=== PATIENT | male | born 1950 | race Caucasian/White ===

== ENCOUNTER 2018-12-10 09:58 | Emergency (ER) | payer MEDICARE, OTHER ==
[2018-12-10] MEDS ORDERED: RINGERS SOLUTION,LACTATED 1,000 ML IV ONE (10:47)
[2018-12-10] MEDS ORDERED: ONDANSETRON HCL INJ/PF 4 MG/2 ML SDV IV ONE (11:21)
[2018-12-10] MEDS ORDERED: MORPHINE SULFATE 10 MG/ML INJ IV ONE ×2 (11:21→23:22)
[2018-12-10 11:55] LABS: ABSOLUTE LYMPHOCYTES (AUTO) 0.4 10^3/uL (0.5-4.7); ABSOLUTE MONOCYTES (AUTO) 0.1 10^3/uL (0.1-1.4); ABSOLUTE NEUT (AUTO) 5.6 10^3/uL (1.7-8.2); BASOPHILS % (AUTO) 0.2 % (0-2); EOSINOPHILS % (AUTO) 0.3 % (0-6); HEMATOCRIT 47.5 % (37.9-51.0); HEMOGLOBIN 16.7 g/dL (13.5-17.0); LYMPHOCYTES % (AUTO) 5.9 % (13-45); MEAN CORPUSCULAR HEMOGLOBIN 32.8 pg (27.0-33.4); MEAN CORPUSCULAR HGB CONC 35.2 g/dL (32.0-36.0); MEAN CORPUSCULAR VOLUME 93 fl (80-97); MONOCYTES % (AUTO) 1.5 % (3-13); PLATELET COUNT 145 10^3/uL (150-450); SEGMENTED NEUTROPHILS % (AUTO) 92.1 % (42-78); TOTAL CELLS COUNTED % (AUTO) 100 %; WHITE BLOOD COUNT 6.1 10^3/uL (4.0-10.5)
[2018-12-10 11:56] LABS: INTERNATIONAL RATION (INR) 0.87; PROTHROMBIN TIME 12.3 SEC (11.4-15.4)
[2018-12-10 12:10] LABS: ALBUMIN 4.9 g/dL (3.5-5.0); ANION GAP 15 (5-19); BLOOD UREA NITROGEN 21 mg/dL (7-20); CALCIUM 10.6 mg/dL (8.4-10.2); CARBON DIOXIDE 27 mmol/L (22-30); CHLORIDE 101 mmol/L (98-107); GLUCOSE 101 mg/dL (75-110); POTASSIUM 4.7 mmol/L (3.6-5.0); SODIUM 142.5 mmol/L (137-145)
[2018-12-10 12:12] LABS: ALANINE AMINOTRANSFERASE 966 U/L (21-72); ALKALINE PHOSPHATASE 219 U/L (38-126); ASPARTATE AMINO TRANSFERASE 670 U/L (17-59); BILIRUBIN,DIRECT 6.1 mg/dL (0.0-0.4); BILIRUBIN,TOTAL 8.1 mg/dL (0.2-1.3); LIPASE 19.2 U/L (23-300)
--- NOTE | 2018-12-10 12:39 | EKG REPORT ---
SEVERITY:- NORMAL ECG - SINUS RHYTHM : Confirmed by: Viri Maguire MD 10-Dec-2018 12:38:26
[2018-12-10] MEDS ORDERED: NORMAL SALINE 1000 ML 1,000 ML IV PRN ×2 (13:26→17:06)
--- NOTE | 2018-12-10 13:47 | ER Document Report ---
ED General - General Chief Complaint: Abdominal Pain Stated Complaint: BLOOD SUGAR ISSUES Time Seen by Provider: 12/10/18 10:43 Primary Care Provider: BETH BOLIVAR DO [Primary Care Provider] - Follow up as needed Mode of Arrival: Ambulatory Information source: Patient TRAVEL OUTSIDE OF THE [place] IN LAST 30 DAYS: No - HPI Notes: Epigastric, right upper quadrant left upper quadrant abdominal pain started approximately 4 days ago. Patient does have a history of alcoholic pancreatitis, reports he does feel nauseated, no vomiting or diarrhea she was treated for pancreatitis in 2015 and later , patient was seen in [place] and his meld is low. at bedside he states she noticed the "beginnings of pancreatitis. Patient recently had blood work done back in September in which his LFTs were normal. Patient is an insulin-dependent diabetic. No chest pain or shortness of breath, no weakness down bilateral extremities, weakness, lightheadedness, dizziness, changes in vision, neck pain, cough, wheezing, lower back pain. States that the symptoms are very similar to his previous episode of pancreatitis. Patient does not have a GI doctor in this area. - Related Data Allergies/Adverse Reactions: lisinopril Allergy (Verified 12/10/18 10:01) olmesartan [From Benicar] Allergy (Verified 12/10/18 10:01) Home Medications: farxiga. HCTZ. zoloftsynthroid. levemir. omeprazole. amlodipine. carvedilol. metformin. limiperide Past Medical History - General Information source: Patient, Relative - Social History Smoking Status: Never Smoker Chew tobacco use (# tins/day): No Frequency of alcohol use: None Drug Abuse: None Family History: Reviewed & Not Pertinent Patient has suicidal ideation: No Patient has homicidal ideation: No - Past Medical History Cardiac Medical History: Reports: Hx Hypertension Endocrine Medical History: Reports: Hx Diabetes Mellitus Type 2 Renal/ Medical History: Denies: Hx Peritoneal Dialysis Past Surgical History: Reports: Hx Orthopedic Surgery Review of Systems - Review of Systems Constitutional: No symptoms reported EENT: No symptoms reported Cardiovascular: No symptoms reported Respiratory: No symptoms reported Gastrointestinal: See HPI Genitourinary: No symptoms reported Male Genitourinary: No symptoms reported Musculoskeletal: No symptoms reported Skin: No symptoms reported Hematologic/Lymphatic: No symptoms reported Neurological/Psychological: No symptoms reported Physical Exam - Vital signs Vitals: Temp Pulse Resp BP Pulse Ox 97.7 F 76 20 135/84 H 97 12/10/18 10:07 12/10/18 10:07 12/10/18 10:12/10/18 10:12/10/18 10:07 - Notes Notes: PHYSICAL EXAMINATION: GENERAL: Well-appearing, well-nourished and in no acute distress. HEAD: Atraumatic, normocephalic. EYES: Pupils equal round and reactive to light, extraocular movements intact, sclera anicteric, conjunctiva are normal. ENT: Nares patent, oropharynx clear without exudates. Moist mucous membranes. NECK: Normal range of motion, supple without lymphadenopathy LUNGS: Breath sounds clear to auscultation bilaterally and equal. No wheezes rales or rhonchi. HEART: Regular rate and rhythm without murmurs ABDOMEN: Right upper quadrant, left upper quadrant and epigastric tenderness on palpation. soft, nondistended abdomen. No guarding, no rebound. No masses appreciated. No CVA tenderness bilaterally Musculoskeletal: Normal range of motion, no pitting or edema. No cyanosis. NEUROLOGICAL: Cranial nerves grossly intact. Normal speech, normal gait. Normal sensory, motor exams PSYCH: Normal mood, normal affect. SKIN: Warm, Dry, normal turgor, no rashes or lesions noted. Course - Re-evaluation Re-evalutation: 12/10/18 14:42 68-year-old male afebrile vitals stable no mild distress due to pain presented to the ED for evaluation, AST 670, ALT 966, alk phos is 219, direct bili is 6.1.1, indirect bili is 8.2, CT negative for leukocytosis or anemia, renal function unremarkable, electrolytes without disturbances. Ultrasound of limited abdomen does show a fatty liver, CT abdomen pelvis with IV contrast shows chron ic pancreatitis. Patient's blood sugar in the 80s, although this is considered normal, patient is insulin-dependent diabetic with a reported A1c of 6.7, will be Glucogon since patient is likely tolerant to a glucose in the 130s on reevaluation, patient remains afebrile vitals. On reevaluation patient remains without any complaints, vitals stable. This is a latest lab gastroenterology alcohol patient with ERCP due to likely obstruction of pancreatic duct no masses seen on CT of abdomen pelvis with IV contrast. Discussed with patient likely need to be transferred. You have over, [facility], Dr. Simona Novak, hospitalist accepted patient to GI floor for further evaluation. Verbalized transfer to patient who stated he is agreeable to this plan of care. Patient will receive pain control as well as IV hydration will remain n.p.o. with monitoring his blood sugar due to being diabetic. Disposition given to mo BURDICK at 0715 at bedside - Vital Signs Vital signs: Temp Pulse Resp BP Pulse Ox 98.6 F 76 17 99/70 L 95 12/10/18 13:02 12/10/18 10:07 12/10/18 17:00 12/10/18 15:11 12/10/18 17:00 - Laboratory Result Diagrams: 12/10/18 11:18 12/10/18 11:18 Laboratory results interpreted by me: 12/10/18 12/10/18 12/10/18 11:18 11:18 11:18 Plt Count 145 L Seg Neutrophils % 92.1 H Lymphocytes % 5.9 L Monocytes % 1.5 L Absolute Lymphocytes 0.4 L BUN 21 H POC Glucose Calcium 10.6 H Total Bilirubin 8.1 H Direct Bilirubin 6.1 H AST 670 H ALT 966 H Alkaline Phosphatase 219 H Ammonia Creatine Kinase 43 L Lipase 19.2 L Urine Glucose (UA) Urine Ketones Urine Urobilinogen 12/10/18 12/10/18 12/10/18 14:28 15:14 15:36 Plt Count Seg Neutrophils % Lymphocytes % Monocytes % Absolute Lymphocytes BUN POC Glucose 130 H Calcium Total Bilirubin Direct Bilirubin AST ALT Alkaline Phosphatase Ammonia < 8.7 L Creatine Kinase Lipase Urine Glucose (UA) >=500 H Urine Ketones 20 H Urine Urobilinogen 4.0 H Discharge - Discharge Clinical Impression: suspected pancreatic obstruction, Elevated LFTs Disposition: [facility] Referrals: BETH BOLIVAR, [Primary Care Provider] - Follow up as needed
[2018-12-10] MEDS ORDERED: GLUCAGON,HUMAN RECOMB 1 MG INJ SUBCUT ONE (14:19)
--- NOTE | 2018-12-10 14:25 | RADIOLOGY REPORT (SQ) ---
EXAM DESCRIPTION: CHEST SINGLE VIEW COMPLETED DATE/TIME: 12/10/2018 2:16 pm REASON FOR STUDY: epigastric pain COMPARISON: None. EXAM PARAMETERS: NUMBER OF VIEWS: One view. TECHNIQUE: Single frontal radiographic view of the chest acquired. RADIATION DOSE: NA LIMITATIONS: None. FINDINGS: LUNGS AND PLEURA: No acute infiltrates or effusions. MEDIASTINUM AND HILAR STRUCTURES: No masses. Contour normal. HEART AND VASCULAR STRUCTURES: Normal heart size and uncoiling thoracic aorta. . BONES: No acute findings. HARDWARE: Status post cervical fusion. OTHER: Chest leads in place. IMPRESSION: NO ACUTE DISEASE. TECHNICAL DOCUMENTATION: JOB ID: [id number] SC-69 2010 [employer]- All Rights Reserved Reading location - IP/workstation name: [email or web address]
[2018-12-10] MEDS ORDERED: GLUCAGON,HUMAN RECOMB 1 MG INJ IV ONE (14:58)
--- NOTE | 2018-12-10 14:59 | RADIOLOGY REPORT (SQ) ---
EXAM DESCRIPTION: CT ABD/PELVIS WITH IV ONLY COMPLETED DATE/TIME: 12/10/2018 2:32 pm REASON FOR STUDY: RUQ, LUQ, epigastric pain w/ elevated LFTs COMPARISON: None. TECHNIQUE: CT scan of the abdomen and pelvis performed using helical scanning technique with dynamic intravenous contrast injection. No oral contrast. Images reviewed with lung, soft tissue, and bone windows. Reconstructed coronal and sagittal MPR images reviewed. Delayed images for evaluation of the urinary system also acquired. All images stored on PACS. All CT scanners at this facility use dose modulation, iterative reconstruction, and/or weight based d osing when appropriate to reduce radiation dose to as low as reasonably achievable (ALARA). [facility]: Dose Right [facility]: CareDose [facility]: Dose Right [facility]: Teradose 4D [facility]: [employer] CONTRAST TYPE AND DOSE: contrast/concentration: Isovue 350.00 mg/ml; Total Contrast Delivered: 100.0 ml; Total Saline Delivered: 70.0 ml RENAL FUNCTION: GFR > 60. RADIATION DOSE: CT Rad equipment meets quality standard of care and radiation dose reduction techniq ues were employed. CTDIvol: 20.2 - 29.2 mGy. DLP: 2787 mGy-cm.. LIMITATIONS: Artifact from bilateral hip arthroplasty. FINDINGS: LOWER CHEST: 3 mm pleural-based nodule right lower lobe image 8. LIVER: 4 cm cyst. No solid mass or biliary dilatation. SPLEEN: Normal size. No focal lesions. PANCREAS: Atrophy. Calcifications consistent with chronic pancreatitis. GALLBLADDER: Surgically absent. ADRENAL GLANDS: No significant masses or asymmetry. RIGHT KIDNEY AND URETER: No solid masses. No significant calcifications. No hydronephrosis or hyd roureter. LEFT KIDNEY AND URETER: No solid masses. No significant calcifications. No hydronephrosis or hydr oureter. AORTA AND VESSELS: No aneurysm. No dissection. Renal arteries, SMA, celiac without stenosis. RETROPERITONEUM: No retroperitoneal adenopathy, hemorrhage or masses. BOWEL AND PERITONEAL CAVITY: Incidental duodenum diverticulum. Right hemicolectomy. No bowel obstru ction. No ascites or free air. APPENDIX: Surgically absent. PELVIS: No mass. No free fluid. Normal bladder. ABDOMINAL WALL: Small fat containing umbilical hernia. BONES: Nothing acute. OTHER: No other significant finding. IMPRESSION: Chronic pancreatitis. Right hemicolectomy. No acute findings. TECHNICAL DOCUMENTATION: JOB ID: [id number] Quality ID # [id number]: Final reports with documentation of one or more dose reduction techniques (e.g., Au tomated exposure control, adjustment of the mA and/or kV according to patient size, use of iterative reconstruction technique) 2010 [employer]- All Rights Reserved Reading location - IP/workstation name: [email or web address]
[2018-12-10 15:31] LABS: APPEARANCE,URINE CLEAR; BILIRUBIN,URINE NEGATIVE (NEGATIVE); COLOR,URINE AMBER; GLUCOSE, URINE >=500 mg/dL (NEGATIVE); KETONES,URINE 20 mg/dL (NEGATIVE); LEUKOCYTE ESTERASE,URINE NEGATIVE (NEGATIVE); NITRITE,URINE NEGATIVE (NEGATIVE); PROTEIN,URINE NEGATIVE (NEGATIVE); URINE SPECIFIC GRAVITY 1.048
--- NOTE | 2018-12-10 16:38 | RADIOLOGY REPORT (SQ) ---
EXAM DESCRIPTION: U/S ABDOMEN LTD W/DOPPLER COMPLETED DATE/TIME: 12/10/2018 4:27 pm REASON FOR STUDY: LFT's 900, epigastric pain with swelling COMPARISON: None. TECHNIQUE: Dynamic and static grayscale images acquired of the abdomen and recorded on PACS. Additio nal selected color Doppler and spectral images recorded. LIMITATIONS: Limited visualization. Poor acoustical window FINDINGS: PANCREAS: Not visualized. LIVER: Normal size Mild fatty infiltration. No focal masses. LIVER VASCULATURE: Normal directional flow of the main portal vein and hepatic veins. GALLBLADDER: Surgically absent. ULTRASOUND-DETECTED MCINTOSH'S SIGN: Not applicable. INTRAHEPATIC DUCTS AND COMMON DUCT: CBD and intrahepatic ducts normal caliber. No filling defects. INFERIOR VENA CAVA: Normal flow. AORTA: No aneurysm. RIGHT KIDNEY: Normal size. Normal echogenicity. No solid or suspicious masses. No hydronephros is. No calcifications. PERITONEAL AND RIGHT PLEURAL SPACE: No ascites or effusions. OTHER: No other significant findings. IMPRESSION: Fatty liver. No acute findings. TECHNICAL DOCUMENTATION: JOB ID: [id number] [employer]- All Rights Reserved Reading location - IP/workstation name: [email or web address]
[2018-12-10] MEDS ORDERED: DEXTROSE 40% GEL 15 GM TUBE PO PRN ×2 (17:10)
[2018-12-10] MEDS ORDERED: GLUCAGON,HUMAN RECOMB 1 MG INJ IM PRN (17:10)
[2018-12-10] MEDS ORDERED: DEXTROSE 50%-WATER 25 GM/50 ML DISP.SYRIN IV PRN ×2 (17:10)
--- NOTE | 2018-12-10 17:18 | PDOC H&P ---
History of Present Illness Admission Date/PCP: BETH BOLIVAR DO Patient complains of: abdominal pain History of Present Illness: DANIEL ROBERTS is a 68 year old male who presents to the ER with a complaint of abdominal pain. Pain started 4 days ago. He felt it was his pancreatitis he had that several times in the past. Been eating and drinking very little. Been having some nausea and abdominal pain pain is worse in the right upper quadrant. Nothing makes pain better or worse. Pain is more of a sharp sensation. He has a history of a cholecystectomy. He denies any fevers chills any shortness of breath any vomiting any constipation or diarrhea. Denies any foreign travel. Did eat some shrimp a few days ago. And had oysters a couple of weeks ago. Past Medical History Cardiac Medical History: Reports: Hypertension Pulmonary Medical History: Reports: None Neurological Medical History: Reports: None Endocrine Medical History: Reports: Diabetes Mellitus Type 2 Past Surgical History Past Surgical History: Reports: Orthopedic Surgery Social History Smoking Status: Never Smoker Family History Family History: CAD, DM, Hypertension Parental Family History Reviewed: Yes Children Family History Reviewed: Yes Sibling(s) Family History Reviewed.: Yes Medication/Allergy Allergies/Adverse Reactions: lisinopril Allergy (Verified 12/10/18 10:01) olmesartan [From Benicar] Allergy (Verified 12/10/18 10:01) Review of Systems Constitutional: PRESENT: anorexia. ABSENT: chills, fatigue, fever(s), headache(s), night sweats, weakness Nose, Mouth, and Throat: ABSENT: sore throat Cardiovascular: ABSENT: edema, orthropnea, palpitations Gastrointestinal: PRESENT: abdominal pain, nausea. ABSENT: constipation, diarrhea, vomiting Integumentary: ABSENT: pruritus, rash Neurological: ABSENT: dizziness, lack of coordination Endocrine: ABSENT: polydipsia, polyuria Hematologic/Lymphatic: ABSENT: easy bruising Physical Exam Vital Signs: Temp Pulse Resp BP Pulse Ox 98.6 F 76 17 99/70 L 95 12/10/18 13:02 12/10/18 10:07 12/10/18 17:00 12/10/18 15:11 12/10/18 17:00 Intake & Output 12/09/18 12/10/18 12/11/18 06:59 06:59 06:59 Intake Total 1000 Balance 1000 Weight 141.1 kg General appearance: PRESENT: no acute distress, cooperative, obese, well- developed Head exam: PRESENT: atraumatic Eye exam: PRESENT: EOMI, PERRLA. ABSENT: scleral icterus Ear exam: ABSENT: bleeding Throat exam: ABSENT: tonsillogmegaly Neck exam: ABSENT: full ROM, JVD, lymphadenopathy, tenderness, thyromegaly, tracheal deviation Respiratory exam: PRESENT: clear to auscultation [place], unlabored. ABSENT: accessory muscle use Cardiovascular exam: PRESENT: RRR. ABSENT: gallop, rubs GI/Abdominal exam: PRESENT: normal bowel sounds, soft, tenderness. ABSENT: distended, guarding Musculoskeletal exam: ABSENT: tenderness Neurological exam: PRESENT: alert, oriented to person, oriented to place, oriented to time, oriented to situation Skin exam: PRESENT: dry, normal color, warm Results Laboratory Results: 12/10/18 11:18 12/10/18 11:18 12/10/18 12/10/18 12/10/18 11:18 11:18 14:28 WBC 6.1 RBC 5.10 Hgb 16.7 Hct 47.5 MCV 93 MCH 32.8 MCHC 35.2 RDW 14.0 Plt Count 145 L Seg Neutrophils % 92.1 H Lymphocytes % 5.9 L Monocytes % 1.5 L Eosinophils % 0.3 Basophils % 0.2 Absolute Neutrophils 5.6 Absolute Lymphocytes 0.4 L Absolute Monocytes 0.1 Absolute Eosinophils 0.0 Absolute Basophils 0.0 Sodium 142.5 Potassium 4.7 Chloride 101 Carbon Dioxide 27 Anion Gap 15 BUN 21 H Creatinine 1.01 Est GFR ( Amer) > 60 Est GFR (Non-Af Amer) > 60 Glucose 101 Calcium 10.6 H Total Bilirubin 8.1 H AST 670 H ALT 966 H Alkaline Phosphatase 219 H Ammonia < 8.7 L Total Protein 8.0 Albumin 4.9 Lipase 19.2 L Urine Color Urine Appearance Urine pH Ur Specific [place] Urine Protein Urine Glucose (UA) Urine Ketones Urine Blood Urine Nitrite Ur Leukocyte Esterase Urine WBC (Auto) Urine RBC (Auto) 12/10/18 15:14 WBC RBC Hgb Hct MCV MCH MCHC RDW Plt Count Seg Neutrophils % Lymphocytes % Monocytes % Eosinophils % Basophils % Absolute Neutrophils Absolute Lymphocytes Absolute Monocytes Absolute Eosinophils Absolute Basophils Sodium Potassium Chloride Carbon Dioxide Anion Gap BUN Creatinine Est GFR ( Amer) Est GFR (Non-Af Amer) Glucose Calcium Total Bilirubin AST ALT Alkaline Phosphatase Ammonia Total Protein Albumin Lipase Urine Color MIN[place] Urine Appearance CLEAR Urine pH 5.0 Ur Specific [place] 1.048 Urine Protein NEGATIVE Urine Glucose (UA) >=500 H Urine Ketones 20 H Urine Blood NEGATIVE Urine Nitrite NEGATIVE Ur Leukocyte Esterase NEGATIVE Urine WBC (Auto) 1 Urine RBC (Auto) 1 12/10/18 12/10/18 11:18 11:18 CK-MB (CK-2) 0.76 Troponin I < 0.012 Cancelled Impressions: Abdomen Ultrasound 12/10/18 13:28 IMPRESSION: Fatty liver. No acute findings. Chest X-Ray 12/10/18 13:33 IMPRESSION: NO ACUTE DISEASE. Abdomen/Pelvis CT 12/10/18 13:45 IMPRESSION: Chronic pancreatitis. Right hemicolectomy. No acute findings. Assessment & Plan - Diagnosis (1) Acute hepatitis Is this a current diagnosis for this admission?: Yes Plan: We will admit to medical services. Hepatitis panel has been sent to the lab. Will hydrate with normal saline. Continue to hold home diabetic medications. Monitor blood pressure. See how his liver enzymes trend. (2) Hypertension Is this a current diagnosis for this admission?: Yes Plan: We will continue home medications. Monitor blood pressure carefully. (3) Hypothyroidism Qualifiers: Hypothyroidism type: acquired Qualified Code(s): E03.9 - Hypothyroidism, unspecified Is this a current diagnosis for this admission?: Yes Plan: We will continue home Synthroid. - Time Time Spent: 50 to 70 Minutes Medications reviewed and adjusted accordingly: Yes Anticipated discharge: Home
--- NOTE | 2018-12-10 18:13 | EKG REPORT ---
SEVERITY:- NORMAL ECG - SINUS RHYTHM : Confirmed by: Viri Maguire MD 10-Dec-2018 18:13:06
[2018-12-10] MEDS ORDERED: INSULIN REG, HUMAN 100 UNIT/ML 3 ML VIAL (PYX) SUBCUT SCH (22:00)
[2018-12-11 00:02] VITALS: BP 141/79
[2018-12-11 08:42] LABS: HEPATITIS A AB IGM Negative (Negative); HEPATITIS B CORE AB IGM Negative (Negative); HEPATITS B SURFACE ANTIGEN Negative (Negative)
[2018-12-11 10:45] LABS: HEPATITIS C VIRUS ANTIBODY <0.1 s/co ratio (0.0-0.9)
== END 2018-12-11 00:04 | disposition short-term general hospital (02) ==
LOC: ER 09:58
DX: R79.89 Other specified abnormal findings of blood chemistry (principal); R10.12 Left upper quadrant pain; R11.0 Nausea; E11.9 Type 2 diabetes mellitus without complications; Z79.4 Long term (current) use of insulin; I10 Essential (primary) hypertension
CPT/HCPCS: 93005; 96376; 99285; 96361; 96374; 96375; 36415; 82553; 82962; 82140; 82550; 83690; 85025; 85610; 80053; 81001; 84484; 80074; 71045; 76705; 93976; 74177; 93010; J1610; J2270; J2405; J7030 ×2; J7120